=== PATIENT | male | born 1965 | race Caucasian/White ===

== ENCOUNTER 2019-10-04 11:44 | Emergency (ER) | payer OTHER, SELFPAY ==
[~2019-10-04] VITALS: Ht 177.8 cm; Wt 70.0 kg
--- NOTE | 2019-10-04 11:55 | NUR ---
REPORT FROM ANGIE FRANKLIN IN ROOM FOR EVAL.
[2019-10-04 12:23] LABS: PH, VENOUS 7.408 pH (7.320-7.420)
[2019-10-04 12:24] LABS: FIO2 RA %
--- NOTE | 2019-10-04 12:24 | NUR ---
PIV EST LABS SENT BY LAB IVF INFUSING PER MAR.
[2019-10-04 12:26] LABS: BASOPHILS # (AUTO) 0.03 x10^3/uL (0-0.1); BASOPHILS % (AUTO) 0 % (0-1); EOSINOPHILS # (AUTO) 0.04 x10^3/uL (0-0.4); EOSINOPHILS % (AUTO) 0 % (1-7); LYMPHOCYTES # (AUTO) 1.64 x10^3/uL (1-3.4); LYMPHOCYTES % (AUTO) 14 % (22-44); MD NO; MEAN CORPUSCULAR HEMOGLOBIN 31.9 pg (27.5-34.5); MEAN CORPUSCULAR HGB CONC 33.2 g/dL (33.2-36.2); MONOCYTES # (AUTO) 0.26 x10^3/uL (0.2-0.8); MONOCYTES % (AUTO) 2 % (2-9); NEUTROPHILS # (AUTO) 9.67 x10^3/uL (1.8-6.8); NEUTROPHILS % (AUTO) 83 % (42-75); PLATELET COUNT 415 x10^3/uL (130-400); RED BLOOD COUNT 4.42 x10^6/uL (4.38-5.82); RED CELL DISTRIBUTION WIDTH 13.6 % (9.4-14.8)
[2019-10-04] MEDS ORDERED: SODIUM CHLORIDE 0.9% 1,000ML IVBOLUS ONE ×2 (12:30→13:00)
[2019-10-04 12:34] LABS: ACETONE, SERUM Moderate(40mg/dL) (Negative)
[2019-10-04 12:37] LABS: ALANINE AMINOTRANSFERASE 66 U/L (12-78); ALBUMIN 3.6 g/dL (3.4-5.0); ANION GAP 8 mmol/L (5-15); CALCIUM 9.1 mg/dL (8.5-10.1); CHLORIDE 98 mmol/L (98-107); CREATININE 0.97 mg/dL (0.7-1.3)
[2019-10-04 12:39] LABS: ALKALINE PHOSPHATASE 123 U/L (45-117); BILIRUBIN,TOTAL 0.3 mg/dL (0.2-1.0); TOTAL PROTEIN 7.4 g/dL (6.4-8.2)
--- NOTE | 2019-10-04 12:46 | NUR ---
OOB TO BATHROOM GAIT STEADY. VSS. PLAN FOR 2ND LITER.
--- NOTE | 2019-10-04 13:07 | NUR ---
REPORT TO FUNMI WILCOX
--- NOTE | 2019-10-04 13:35 | NUR ---
task rn: 2nd liter started. nad. as
[2019-10-04] MEDS ORDERED: INSULIN REGULAR 100 UNITS/ML, 3ML VIAL SQ-INSULIN ONE (14:30)
[2019-10-04] MEDS ORDERED: INSULIN SINGLE DOSE, ER ONE (14:36)
[2019-10-04 14:45] VITALS: BP 136/82
== END 2019-10-04 15:05 | disposition home or self-care (01) ==
LOC: ED 12:28
DX: E11.65 Type 2 diabetes mellitus with hyperglycemia (principal); Z91.120 Patient's intentional underdosing of medication regimen due to financial hardship; Z59.0 Homelessness
CPT/HCPCS: 36415; 80053; 82010; 82803; 82962; 85025; 96360; 99283; J1815; J7030; 96372

== ENCOUNTER 2019-10-06 15:22 | Emergency (ER) | payer SELFPAY ==
[~2019-10-06] VITALS: Ht 175.3 cm; Wt 74.0 kg
--- NOTE | 2019-10-06 15:56 | NUR ---
PT TO IMAGING.
[2019-10-06 15:58] LABS: PH, VENOUS 7.443 pH (7.320-7.420)
[2019-10-06] MEDS ORDERED: SODIUM CHLORIDE 0.9% 1,000ML IVBOLUS ONE (16:00)
[2019-10-06] MEDS ORDERED: SODIUM CHLORIDE FLUSH 10ML SYR IVF ONE (16:00)
[2019-10-06] MEDS ORDERED: ONDANSETRON 2MG/ML, 2ML IVPush ONE (16:00)
[2019-10-06 16:08] LABS: MEAN CORPUSCULAR HEMOGLOBIN 31.9 pg (27.5-34.5); MEAN CORPUSCULAR HGB CONC 33.2 g/dL (33.2-36.2); MEAN CORPUSCULAR VOLUME 95.9 fL (81-97); MEAN PLATELET VOLUME 8.1 fL (7.4-10.4); PLATELET COUNT 415 x10^3/uL (130-400); RED BLOOD COUNT 4.86 x10^6/uL (4.38-5.82)
[2019-10-06 16:09] LABS: ALANINE AMINOTRANSFERASE 70 U/L (12-78); ANION GAP 9 mmol/L (5-15); CALCIUM 9.4 mg/dL (8.5-10.1); CHLORIDE 98 mmol/L (98-107)
[2019-10-06 16:11] LABS: ALKALINE PHOSPHATASE 137 U/L (45-117); BILIRUBIN,TOTAL 0.3 mg/dL (0.2-1.0); TOTAL PROTEIN 8.2 g/dL (6.4-8.2)
[2019-10-06] MEDS ORDERED: ONDANSETRON 2MG/ML, 2ML ONE (16:27)
[2019-10-06 16:32] LABS: ACETONE, SERUM Moderate(40mg/dL) (Negative)
[2019-10-06 16:36] LABS: MD YES
--- NOTE | 2019-10-06 16:37 | NUR ---
PT MEDICATED TO AUG. URINAL AT BEDSIDE AT PT REQUEST TO VOID.
[2019-10-06 16:41] LABS: BAND#(MANUAL) 0.43 x10^3/uL; BANDS%(MANUAL) 3 % (0-7); EOS#(MANUAL) 0.14 x10^3/uL (0.0-0.4); EOS% (MANUAL) 1 % (1-7); LYMPH#(MANUAL) 1.28 x10^3/uL (1-3.4); LYMPHS% (MANUAL) 9 % (22-44); MONOS#(MANUAL) 1.14 x10^3/uL (0.3-2.7); MONOS% (MANUAL) 8 % (2-9); SEG#(MANUAL) 11.22 x10^3/uL (1.8-6.8); SEGS% (MANUAL) 79 % (42-75)
[2019-10-06 16:43] LABS: <RBC MORPHOLOGY> NORMAL
[2019-10-06 16:44] LABS: <PLATELET ESTIMATE> INCREASED
[2019-10-06] MEDS ORDERED: FENTANYL PF 100 MCG/2ML ONE (16:46)
[2019-10-06 16:56] LABS: <PLT MORPHOLOGY> NORMAL PLT MORPH
[2019-10-06] MEDS ORDERED: ASPI-496 PO (16:56)
[2019-10-06] MEDS ORDERED: INSULIN 70/30 (16:56)
[2019-10-06] MEDS ORDERED: LISI-170 PO (16:57)
[2019-10-06] MEDS ORDERED: OMEP20TA62 PO (16:57)
[2019-10-06] MEDS ORDERED: FENTANYL PF 100 MCG/2ML IVPush ONE (17:00)
--- NOTE | 2019-10-06 17:11 | NUR ---
PT TO IMAGING, STATES RELIEF FROM PAIN.
[2019-10-06] MEDS ORDERED: OMNIPAQUE 350 MG/ML, 100ML BOTTLE ONE (17:33)
[2019-10-06 17:54] VITALS: BP 161/99
--- NOTE | 2019-10-06 17:55 | NUR ---
TASK RN:PT RESTING IN [facility]. RESPS EVEN AND UNLABORED. CALL LIGHT WITHIN REACH.
--- NOTE | 2019-10-06 19:15 | NUR ---
PT REFUSING TO LEAVE. PT STATED NO ONE HAS EXPLAINED ANYTHING TO HIM. THIS RN HAS REVIEWED DC INSTRUCTIONS TO WHICH PT REPEATEDLY INTERUPTED THIS RN ASKING WHY NO ONE HAS EXPLAINED WHAT'S WRONG WITH HIM. ASKING FOR A DOCTOR TO EXPLAIN WHAT'S GOING ON WITH HIM. NOEMI Dowell WENT IN TO SPEAK WITH PT AND ANSWER ALL QUESTIONS. PT OFFERED TAXI VOUCHER TO GET PT BACK TO [facility]. PT STATED HE CAN'T WALK, PT GIVEN CRUTCHES PER HIS REQUEST. PT ABLE TO DRESS HIMSELF ON HIS OWN. PT STILL REFUSING TO LEAVE. SECURITY CALLED TO ASSIST PT TO DC. PT ABLE TO AMBULATE STEADILY WITH CRUTCHES TO DOOR, SECURITY CALLED TAXI FOR PT.
== END 2019-10-06 19:04 | disposition home or self-care (01) ==
LOC: ED 16:53
DX: K86.0 Alcohol-induced chronic pancreatitis (principal); R10.84 Generalized abdominal pain; I88.0 Nonspecific mesenteric lymphadenitis; E11.9 Type 2 diabetes mellitus without complications; R11.0 Nausea; I44.4 Left anterior fascicular block
CPT/HCPCS: 36415; 74022; 74177; 80053; 82010; 82803; 83690; 85025; 93005; 96374; 96375; 99285; J2405; J3010; J7030; Q9967